=== PATIENT | female | born 1980 | race Caucasian/White ===

== ENCOUNTER 2021-08-31 00:51 | Emergency (ER) | payer SELFPAY ==
--- OUTSIDE RECORDS SUMMARY | 2021-08-31 00:53 | XMS REPORT | Continuity of Care Document ---
:1980 Author Organization [facility] t Address [address] [place] [address] Dr. Quispe [address] [place] [address] Care Team Providers Name Role Phone Nasim MARTÍNEZ Attending Clinician Unavailable Payers Payer Name Policy Type Policy Number Effective Date Expiration Date Suzie savage [id number] 2019 00:00:00 Problems This patient has no known problems. Allergies, Adverse Reactions, Alerts Allergy Allergy Status Severity Reaction(s) Onset Inactive Treating Comm ents Source Name Type Date Date Clinician NO KNOWN Drug Active [facility]ERGIE Class ity of [facility] Medications This patient has no known medications. Procedures This patient has no known procedures. Encounters Start End Encounter Admission Attending Care Care Encounter Source Date/Time Date/Time Type Type Clinicians Facility Department ID 2020-02-23 2020-02-23 Outpatient Nasim MARTÍNEZ [facility] [id number] Univers 13:45:00 13:45:00 NILESH [id number] ity o [facility] 2020-02-23 2020-02-23 Outpatient Nasim MARTÍNEZ [facility] [id number] Univers 13:45:00 13:45:00 NILESH ohy o f [facility] 2020-01-27 2020-01-27 Outpatient R [facility] [id number] Univers 09:45:00 09:45:00 [id number] ity [facility] 2020-01-27 2020-01-27 Outpatient R [facility] [id number] Univers 09:45:00 09:45[facility] 2020-01-18 2020-01-18 Outpatient R MAURICIO [facility] [id number] Univers 09:30:00 09:30:00 NILESH ity o f [facility] 2020-01-18 2020-01-18 Outpatient Nasim MARTÍNEZ [facility] [id number] Univers 00:00:00 00:00:00 NILESH isaac [facility] 2020-01-18 2020-01-18 [id number] Univers 00:00:00 00:00:00 NILESH isaac [facility] 2019-12-01 2019-12-01 [facility] [id number] Univers 14:30:00 14:30:00 [facility] Results This patient has no known results.
[2021-08-31 02:00] LABS: Absolute Lymphocytes (CBC) 4.9 K/uL (0.7-4.9); Lymphocytes % 36.4 % (15.3-44.8); MPV 7.7 fL (7.6-11.3); Protime INR 1.08; RBC Red Blood Cell Count 4.48 M/uL (3.86-4.86)
[2021-08-31] MEDS ORDERED: DIAZEPAM 5 MG TABLET ONE (02:01)
[2021-08-31] MEDS ORDERED: MORPHINE 2 MG/ML SYR ONE (02:01)
[2021-08-31] MEDS ORDERED: dexAMETHasone 10 MG/ML VIAL ONE (02:01)
[2021-08-31] MEDS ORDERED: CEFTRIAXONE 1000 MG/VIAL ONE (02:01)
[2021-08-31] MEDS ORDERED: NA CHLORIDE 0.9% 500 ML ONE (02:02)
[2021-08-31] MEDS ORDERED: KETOROLAC 30 MG/ML INJ ONE (02:02)
[2021-08-31] MEDS ORDERED: ONDANSETRON 4 MG/2 ML VIAL ONE (02:02)
[2021-08-31 02:19] LABS: ALT/SGPT 19 U/L (12-78); AST/SGOT 10 U/L (15-37); Albumin 3.3 g/dL (3.4-5.0); Alkaline Phosphatase 71 U/L (45-117); BUN Blood Urea Nitrogen 6 mg/dL (7-18); Bicarbonate 24 mmol/L (21-32); Bilirubin Total 0.2 mg/dL (0.2-1.0); Glomerular Filtration Rate 101 ml/min (=/>90); Glucose Level 92 mg/dL (74-106); Magnesium 2.1 mg/dL (1.8-2.4); NT PRO-BNP 15 pg/mL (<125); Potassium 3.5 mmol/L (3.5-5.1); Protein, Total 6.9 g/dL (6.4-8.2); Sodium Level 136 mmol/L (136-145)
[2021-08-31 02:21] LABS: Bilirubin Direct < 0.1 mg/dL (0-0.2); Troponin High Sensitivity < 3.0 pg/mL (<58.9)
[2021-08-31] MEDS ORDERED: NA CHLORIDE 0.9% 1,000 ML ONE (02:35)
[2021-08-31 02:42] LABS: Urine Blood Trace-intact (Negative); Urine Glucose Negative (Negative); Urine Protein Negative (Negative); Urine Specific Gravity 1.025 (1.005-1.030); Urine pH 5.5 (5.0-7.0)
[2021-08-31 03:32] LABS: Urine Specific Gravity/Preg 1.025 (1.005-1.030)
--- NOTE | 2021-08-31 03:51 | ER ---
Nurse's Notes [facility] Name: Daisy Chun Age: 40 yrs Sex: Female : 1980 Arrival Date: 08/31/2021 Time: 00:53 Bed 18 Private MD: Diagnosis: Pain in left arm;Cervical disc disorder with radiculopathy;Dental root caries;Dental caries, unspecified;Elevated white blood cell count;Spondylolysis, cervical [id number] Presentation: 08/31 01:18 Chief complaint: Patient states: she has been having left arm pain for several weeks bb starting from her neck and going down the pain is worse in the elbow area she is having difficulty sleeping from it also she recently moved but has had no trauma to her arm. Coronavirus screen: At this time, the client does not indicate any symptoms associated with coronavirus-19. Ebola Screen: No symptoms or risks identified at this time. Initial Sepsis Screen: Does the patient meet any 2 criteria? No. Patient's initial sepsis screen is negative. Does the patient have a suspected source of infection? No. Patient's initial sepsis screen is negative. Risk Assessment: Do you want to hurt yourself or someone else? Patient reports no desire to harm self or others. Onset of symptoms was August 09, 2021. 01:18 Method Of Arrival: Ambulatory bb 01:18 Acuity: BETTY 4 bb Triage Assessment: 01:30 EENT: Reports pain in left arm and left antecubital area. 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 - Social history:: Smoking status: Patient reports the use of cigarette tobacco products, Smoking status: . - Family history:: not pertinent. Screenin:20 Abuse screen: Denies threats or abuse. Denies injuries from another. Nutritional kd3 screening: No deficits noted. Tuberculosis screening: No symptoms or risk factors identified. Fall Risk None identified. Assessment: 01:19 General: Appears in no apparent distress. Behavior is calm, cooperative. Pain: kd3 Complains of pain in left antecubital area. Neuro: Level of Consciousness is awake, alert, obeys commands, Oriented to person, place, time, situation, Meat Cooler are equal bilaterally Moves all extremities. Full function Gait is steady, Speech is normal, Facial symmetry appears normal, Pupils are PERRLA. Cardiovascular: Patient's skin is warm and dry. Respiratory: Airway is patent Trachea midline Respiratory effort is even, unlabored, Respiratory pattern is regular, symmetrical. EENT: No deficits noted. 02:16 Reassessment: Patient and/or family updated on plan of care and expected duration. Pain kd3 level reassessed. Patient is alert, oriented x 3, equal unlabored respirations, skin warm/dry/pink. Vital Signs: 01:18 BP 134 / 90; Pulse 86; Resp 16 S; Temp 98.3(O); Pulse Ox 100% on R/A; Weight 88.45 kg bb (R); Height 5 ft. 6 in. (167.64 cm) (R); Pain 7/10; 02:16 BP 129 / 82; Pulse 71; Resp 18; Pulse Ox 100% on R/A; kd3 03:45 Pulse 72; Resp 18; Pulse Ox 100% on R/A; kd3 01:18 Body Mass Index 31.47 (88.45 kg, 167.64 cm) ED Course: 00:53 Patient arrived in ED. as 01:02 Sudheer Arredondo MD is Attending Physician. [facility] 01:08 Anupama Adrian, RN is Primary Nurse. kd3 01:20 Patient has correct armband on for positive identification. kd3 01:20 No provider procedures requiring assistance completed. kd3 01:21 Triage completed. bb 01:21 Arm band placed on Patient placed in an exam room, on a stretcher, on pulse oximetry. bb 01:47 XRAY Chest (1 view) In Process Unspecified. EDMS 02:00 Client placed on continuous cardiac and pulse oximetry monitoring. NIBP monitoring wm applied. monitor technician on. 02:00 Placed in gown. Bed in low position. Call light in reach. Side rails up X 1. wm 02:00 EKG done, by ED staff, reviewed by Sudheer Arredondo MD. wm 02:37 UPPER EXTREMITY VENOUS UNILATE In Process Unspecified. EDMS 03:00 CT C Spine In Process Unspecified. EDMS 03:51 Elias Wynn MD is Referral Physician. leobardo 04:02 IV discontinued, intact, bleeding controlled, No redness/swelling at site. Pressure kd3 dressing applied. Administered Medications: 02:08 Drug: Valium (diazepam) 5 mg Route: PO; kd3 04:03 Follow up: Response: No adverse reaction kd3 02:08 Drug: morphine 2 mg Route: IVP; Infused Over: 4 mins; Site: right forearm; kd3 04:02 Follow up: Response: No adverse reaction; Pain is decreased kd3 02:08 Drug: Zofran (Ondansetron) 4 mg Route: IVP; Site: right forearm; kd3 04:02 Follow up: Response: No adverse reaction kd3 02:08 Drug: Rocephin (cefTRIAXone) 1 grams Route: IV; Rate: per protocol; Site: right forearm;kd3 04:02 Follow up: Response: No adverse reaction; IV Status: Completed infusion kd3 02:09 Drug: NS 0.9% 500 ml Route: IV; Rate: bolus; Site: left forearm; kd3 04:03 Follow up: Response: No adverse reaction; IV Status: Completed infusion kd3 02:09 Drug: Ketorolac 30 mg Route: IVP; Site: right forearm; kd3 04:03 Follow up: Response: No adverse reaction; Pain is decreased kd3 02:09 Drug: Decadron - Dexamethasone 10 mg Route: IVP; Site: right forearm; kd3 04:03 Follow up: Response: No adverse reaction kd3 02:30 Drug: NS 0.9% 1000 ml Route: IV; Rate: 125 ml/hr; Site: right forearm; kd3 04:03 Follow up: Response: No adverse reaction; IV Status: Completed infusion kd3 Medication: 01:31 VIS not applicable for this client. kd3 Outcome: 03:51 Discharge ordered by . leobardo 04:01 Discharged to home ambulatory. kd3 04:01 Condition: stable 04:01 Discharge instructions given to patient, Instructed on discharge instructions, follow up and referral plans. medication usage, Demonstrated understanding of instructions, follow-up care, medications, Prescriptions given X 4. 04:03 Patient left the ED. kd3 Signatures: Dispatcher [employer] [facility] Sudheer Arredondo MD MD cha Martinez, Amelia as Ballard, Brenda RN RN bb Sheryl Oneill Kyli, RN RN kd3 Corrections: (The following items were deleted from the chart) 01:21 01:17 Chief complaint: maryse bb
--- NOTE | 2021-08-31 03:51 | EDPHYS ---
Physician Documentation [facility] Name: Daisy Chun Age: 40 yrs Sex: Female : 1980 Arrival Date: 08/31/2021 Time: 00:53 Bed 18 Private MD: BISI Physician Sudheer Arredondo HPI: 08/31 01:32 This 40 yrs old Female presents to ER via Ambulatory with complaints of Arm leobardo Pain, Toothache. 01:32 The patient or guardian complains of decreased range of motion, pain. The complaints leobardo affect the left bicep and left tricep. Context: The problem was sustained at an unknown location. Onset: The symptoms/episode began/occurred 2 week(s) ago. Treatment prior to arrival includes: no previous treatment. Modifying factors: The symptoms are alleviated by nothing. the symptoms are aggravated by movement, bending arm. Associated signs and symptoms: Pertinent positives: decreased range of motion, pain, swelling. Severity of symptoms: At their worst the symptoms were moderate, in the emergency department the symptoms have resolved. The patient has not experienced similar symptoms in the past. 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 - Social history:: Smoking status: Patient reports the use of cigarette tobacco products, Smoking status: . - Family history:: not pertinent. ROS: 01:32 Constitutional: Negative for fever, chills, and weight loss, Eyes: Negative for injury, leobardo pain, redness, and discharge, ENT: Negative for injury, pain, and discharge, Cardiovascular: Negative for chest pain, palpitations, and edema, Respiratory: Negative for shortness of breath, cough, wheezing, and pleuritic chest pain, Abdomen/GI: Negative for abdominal pain, nausea, vomiting, diarrhea, and constipation, Back: Negative for injury and pain, : Negative for injury, bleeding, discharge, and swelling, Skin: Negative for injury, rash, and discoloration, Neuro: Negative for headache, weakness, numbness, tingling, and seizure. 01:32 ENT: Positive for Teeth pain 01:32 Neck: Positive for pain with movement, pain at rest. 01:32 MS/extremity: Positive for decreased range of motion, pain, tenderness, of the left arm. Exam: 01:32 Constitutional: This is a well developed, well nourished patient who is awake, alert, leobardo and in no acute distress. Head/Face: Normocephalic, atraumatic. Eyes: Pupils equal round and reactive to light, extra-ocular motions intact. Lids and lashes normal. Conjunctiva and sclera are non-icteric and not injected. Cornea within normal limits. Periorbital areas with no swelling, redness, or edema. Chest/axilla: Normal chest wall appearance and motion. Nontender with no deformity. No lesions are appreciated. Cardiovascular: Regular rate and rhythm with a normal S1 and S2. No gallops, murmurs, or rubs. Normal PMI, no JVD. No pulse deficits. Respiratory: Lungs have equal breath sounds bilaterally, clear to auscultation and percussion. No rales, rhonchi or wheezes noted. No increased work of breathing, no retractions or nasal flaring. Abdomen/GI: Soft, non-tender, with normal bowel sounds. No distension or tympany. No guarding or rebound. No evidence of tenderness throughout. Back: No spinal tenderness. No costovertebral tenderness. Full range of motion. Skin: Warm, dry with normal turgor. Normal color with no rashes, no lesions, and no evidence of cellulitis. Neuro: Awake and alert, GCS 15, oriented to person, place, time, and situation. Cranial nerves II-XII grossly intact. Motor strength 5/5 in all extremities. Sensory grossly intact. Cerebellar exam normal. Normal gait. Psych: Awake, alert, with orientation to person, place and time. Behavior, mood, and affect are within normal limits. 01:32 ENT: Mouth: Gums: noted to have cellulitis, on the lower left second bicuspid. 01:32 Neck: External neck: is normal, no acute changes, C-spine: appears grossly normal, no acute changes, Thyroid: appears normal, no acute changes, Trachea: is midline with no obvious abnormalities, ROM/movement: pain, that is mild, limited range of motion, when rotating to the left, with flexion, with extension, Lymph nodes: no appreciated lymphadenopathy. 01:32 Musculoskeletal/extremity: ROM: limited active range of motion due to pain, limited passive range of motion due to pain, in the left arm, Circulation is intact in all extremities. Severe pain noted. Compartment Syndrome exam of affected extremity: is normal. no numbness, no tingling, no sensation deficit, no palor, no weak pulses, severe pain, Weight bearing: able to fully bear weight, DVT Exam: no swelling, negative Homans' sign noted on exam, no appreciated bluish discoloration, no erythema, no increased warmth, pain, tenderness. 01:59 ECG was reviewed by the Attending Physician. [place] Vital Signs: 01:18 BP 134 / 90; Pulse 86; Resp 16 S; Temp 98.3(O); Pulse Ox 100% on R/A; Weight 88.45 kg bb (R); Height 5 ft. 6 in. (167.64 cm) (R); Pain 7/10; 02:16 BP 129 / 82; Pulse 71; Resp 18; Pulse Ox 100% on R/A; kd3 03:45 Pulse 72; Resp 18; Pulse Ox 100% on R/A; kd3 01:18 Body Mass Index 31.47 (88.45 kg, 167.64 cm) bb MDM: 01:02 Patient medically screened. [place] 01:39 Differential diagnosis: contusion, abrasion, tendonitis. Data reviewed: vital signs, [place] nurses notes, lab test result(s), EKG, radiologic studies, CT scan, plain films. Data interpreted: monitor and storage bin tender: rate is 86 beats/min, rhythm is regular, Pulse oximetry: on room air is 100 %. Test interpretation: by ED physician or midlevel provider: plain radiologic studies. Counseling: I had a detailed discussion with the patient and/or guardian regarding: the historical points, exam findings, and any diagnostic results supporting the discharge/admit diagnosis, lab results, radiology results. 08/31 01:30 Order name: Basic Metabolic Panel; Complete Time: 02:40 [place] 08/31 01:30 Order name: CBC with Diff; Complete Time: 02:40 [place] 08/31 01:30 Order name: LFT's; Complete Time: 02:40 [place] 08/31 01:30 Order name: Magnesium; Complete Time: 02:40 [place] 08/31 01:30 Order name: NT PRO-BNP; Complete Time: 02:40 [place] 08/31 01:30 Order name: PT-INR; Complete Time: 02:40 [place] 08/31 01:30 Order name: Troponin HS; Complete Time: 02:40 [place] 08/31 01:30 Order name: XRAY Chest (1 view) [place] 08/31 01:30 Order name: CT C Spine [place] 08/31 02:36 Order name: UPPER EXTREMITY VENOUS UNILATE EDAL 08/31 02:42 Order name: Urine Dipstick-Ancillary; Complete Time: 03:21 EDAL 08/31 02:44 Order name: Urine --Ancillary (enter results) ds4 08/31 01:30 Order name: Cardiac monitoring; Complete Time: 02:09 [place] 08/31 01:30 Order name: EKG - Nurse/Tech; Complete Time: 02:09 [place] 08/31 01:30 Order name: IV Saline Lock; Complete Time: 01:40 [place] 08/31 01:30 Order name: Labs collected and sent; Complete Time: 01:40 [place] 08/31 01:30 Order name: O2 Per Protocol; Complete Time: 02:11 [place] 08/31 01:30 Order name: O2 Sat Monitoring; Complete Time: 02:11 [place] 08/31 01:32 Order name: Urine Dipstick-Ancillary (obtain specimen); Complete Time: 02:42 [place] 08/31 01:32 Order name: Urine Test (obtain specimen); Complete Time: 02:42 [place] EC:59 Rate is 76 beats/min. Rhythm is regular. QRS [place] is Normal. WA interval is normal. QRS leobardo interval is normal. QT interval is normal. No Q waves. T waves are Normal. No ST changes noted. Clinical impression: Normal ECG and No evidence of ischemia. Interpreted by me. Reviewed by me. Administered Medications: 02:08 Drug: Valium (diazepam) 5 mg Route: PO; kd3 04:03 Follow up: Response: No adverse reaction kd3 02:08 Drug: morphine 2 mg Route: IVP; Infused Over: 4 mins; Site: right forearm; kd3 04:02 Follow up: Response: No adverse reaction; Pain is decreased kd3 02:08 Drug: Zofran (Ondansetron) 4 mg Route: IVP; Site: right forearm; kd3 04:02 Follow up: Response: No adverse reaction kd3 02:08 Drug: Rocephin (cefTRIAXone) 1 grams Route: IV; Rate: per protocol; Site: right forearm;kd3 04:02 Follow up: Response: No adverse reaction; IV Status: Completed infusion kd3 02:09 Drug: NS 0.9% 500 ml Route: IV; Rate: bolus; Site: left forearm; kd3 04:03 Follow up: Response: No adverse reaction; IV Status: Completed infusion kd3 02:09 Drug: Ketorolac 30 mg Route: IVP; Site: right forearm; kd3 04:03 Follow up: Response: No adverse reaction; Pain is decreased kd3 02:09 Drug: Decadron - Dexamethasone 10 mg Route: IVP; Site: right forearm; kd3 04:03 Follow up: Response: No adverse reaction kd3 02:30 Drug: NS 0.9% 1000 ml Route: IV; Rate: 125 ml/hr; Site: right forearm; kd3 04:03 Follow up: Response: No adverse reaction; IV Status: Completed infusion kd3 Disposition Summary: 08/31/21 03:51 Discharge Ordered Location: Home leobardo Problem: new leobardo Symptoms: have improved leobardo Condition: Stable leobardo Diagnosis - Pain in left arm leobardo - Cervical disc disorder with radiculopathy leobardo - Dental root caries leobardo - Dental caries, unspecified leobardo - Elevated white blood cell count leobardo - Spondylolysis, cervical region - c4-c5 leobardo Followup: leobardo - With: Private Physician - When: 2 - 3 days - Reason: Recheck today's complaints, Continuance of care, Re-evaluation by your physician Followup: leobardo - With: - When: 2 - 3 days - Reason: Recheck today's complaints, Continuance of care, Re-evaluation by your physician Discharge Instructions: - Discharge Summary Sheet leobardo - Cervical Radiculopathy leobardo - Dental Caries, Adult leobardo - Dental Pain leobardo - Musculoskeletal Pain leobardo - Diet and Dental Disease leobardo - Cervical Radiculopathy, [id number] leobardo - Dental Caries, Adult, [id number] leobardo Forms: - Medication Reconciliation Form leobardo - Thank You Letter leobardo - Antibiotic Education leobardo - Prescription Opioid Use leobardo Prescriptions: - dexamethasone 2 mg Oral tablet - take 1 tablet by ORAL route 2 times per day; 10 tablet; Refills: 0, Product leobardo Selection Permitted - Cephalexin 500 mg Oral Capsule - take 1 capsule by ORAL route every 6 hours for 7 days; 28 capsule; Refills: 0, [place] Product Selection Permitted - Ibuprofen 600 mg Oral Tablet - take 1 tablet by ORAL route every 6 hours As needed take with food; 30 tablet; leobardo Refills: 0, Product Selection Permitted - Cyclobenzaprine 5 mg Oral Tablet - take 1 tablet by ORAL route 3 times per day As needed; 15 tablet; Refills: 0, [place] Product Selection Permitted - Tylenol-Codeine #3 300 mg-30 mg Oral - take 2 tablet by ORAL route every 6 hours; 16 tablet; Refills: 0, Product leobardo Selection Permitted Signatures: Dispatcher [employer] EDMS Sudheer Arredondo MD MD cha Ballard, Brenda RN RN Anupama Buchanan RN RN kd3 Corrections: (The following items were deleted from the chart) 02:36 01:31 Extremity Venous [email or web address] ordered. EDAL EDMS
[2021-08-31 04:14] VITALS: TEMP 98.3; O2SAT 100
[2021-08-31 04:16] VITALS: BP 129/82
--- NOTE | 2021-08-31 13:34 | RAD REPORT ---
EXAM DESCRIPTION: US - UPPER EXTREMITY VENOUS UNILATE - 08/31/2021 4:43 am CLINICAL HISTORY: 40 years, Female, PAIN COMPARISON: None FINDINGS: Multiple grayscale images as well as duplex Doppler ultrasound of left upper extremity wer e performed. The left internal jugular vein, left subclavian vein, left axillary vein, left brachial vein, left ra dial and ulnar veins were imaged. Spectral waveform demonstrate normal compressibility, phasicity a nd augmentation. No intraluminal defects were seen. Left basilic vein demonstrate to be patent with no evidence for superficial thrombophlebitis. The lef t cephalic vein was not visualized. IMPRESSION: No evidence of left upper extremity DVT. Electronically signed by: Eilseo Wayne MD 08/31/2021 3:36 AM CDT Due to temporary technical issues with the PACS/Fluency reporting system, reports are being signed by the in house radiologists without. review as a courtesy to insure prompt reporting. The interpreting radiologist is fully responsible for the content of the report.
--- NOTE | 2021-08-31 13:52 | RAD REPORT ---
EXAM DESCRIPTION: RAD - Chest Single View - 08/31/2021 1:45 am COMPARISON: None. CLINICAL HISTORY: [facility] MAIN CHEST PAIN FINDINGS: A single AP view of the chest demonstrates a normal cardiomediastinal silhouette. No pneumothorax or pleural effusion. No consolidation or pulmonary edema. Osseous structures are intact. IMPRESSION: No acute chest process. Electronically signed by: Mick Sibley MD 08/31/2021 1:58 AM CDT Due to temporary technical issues with the PACS/Fluency reporting system, reports are being signed by the in house radiologists without. review as a courtesy to insure prompt reporting. The interpreting radiologist is fully responsible for the content of the report.
--- NOTE | 2021-08-31 14:10 | RAD REPORT ---
EXAM DESCRIPTION: CT - C Spine Wo Con - 08/31/2021 2:59 am CLINICAL HISTORY: 40 years, Female, Cervical radiculopathy, no red flags COMPARISON: None TECHNIQUE: Multiple axial CT images through the cervical spine were obtained at 2 mm slice thickness at 2 mm interval reconstruction. In addition 2-D multiplanar reformats and the sagittal coronal plan e were performed and reviewed. This exam was performed according to our departmental dose-optimization protocol, which includes auto mated exposure control, adjustment of the mA and/or kV according to patient size and/or use of iterat mikhail reconstruction technique. FINDINGS: The alignment, vertebral body heights, and disc spaces are normal. There is no evidence of fracture or subluxation. There are no significant degenerative changes. Minimal anterior spondylos is at C4-C5. The spinal canal demonstrate no evidence for significant stenosis. Neural foramina demon strate to be unremarkable. The uncovertebral joints demonstrate to be normal. There is no prevertebra l soft tissue swelling. Visualized portions of the lung apices demonstrate to unremarkable. Sagittal coronal reformatted images demonstrate no subluxation or bony abnormalities. IMPRESSION: Minimal anterior spondylosis at C4-C5. No evidence for acute bony injuries and/or subluxation. Electronically signed by: Eliseo Wayne MD 08/31/2021 3:38 AM CDT Due to temporary technical issues with the PACS/Fluency reporting system, reports are being signed by the in house radiologists without. review as a courtesy to insure prompt reporting. The interpreting radiologist is fully responsible for the content of the report.
--- NOTE | 2021-09-02 17:35 | EKG ---
Test Date: 2021-08-31 Test Time: 01:46:30 Laser Operator: MEASUREMENT RESULTS: Intervals: Rate: 76 WA: 114 QRSD: 76 QT: 398 QTc: 447 [place]: P: 36 WA: 114 QRS: 58 T: 60 INTERPRETIVE STATEMENTS: Normal sinus rhythm Normal ECG No previous ECG available for comparison Electronically Signed On 09-02-21 17:31:01 CDT by Simone Ayoub
== END 2021-08-31 04:03 | disposition home or self-care (01) ==
LOC: ER 00:51
DX: M50.10 Cervical disc disorder with radiculopathy, unspecified cervical region (principal); M43.02 Spondylolysis, cervical region; K02.7 Dental root caries; K02.9 Dental caries, unspecified; D72.829 Elevated white blood cell count, unspecified; Z72.0 Tobacco use
CPT/HCPCS: 36415; 71045; 72125; 80048; 80076; 81003; 81025; 83735; 83880; 84484; 85025; 85610; 93005; 93971; 96365; 96366; 96375; 99284; J1100; J2270; J2405; J7030; J7040